=== PATIENT | male | born 1960 | race African-American/Black ===

== ENCOUNTER 2017-06-12 19:17 | Emergency (ER) | payer MEDICAID ==
[~2017-06-12] VITALS: Ht 177.8 cm; Wt 100.0 kg
[2017-06-12] MEDS ORDERED: HALOPERIDOL LACTATE 5MG/ML VIAL IM STA (19:27)
[2017-06-12] MEDS ORDERED: SODIUM CHLORIDE 0.9% 1,000 ML IV ONE (19:27)
[2017-06-12] MEDS ORDERED: LORAZEPAM 2MG/ML CPJ IM STA (19:27)
[2017-06-12 20:34] LABS: BASOPHILS % 0.6 % (0.0-2.0); EOSINOPHILS % 2.2 % (0.0-5.0); HEMATOCRIT. 29.5 % (42.0-52.0); HEMOGLOBIN. 10.3 g/dL (14.0-18.0); LYMPHOCYTES % 12.9 % (20.0-50.0); MEAN CORPUSCULAR HEMOGLOBIN 32.5 pg (28.0-32.0); MEAN CORPUSCULAR VOLUME 92.8 fL (80.0-94.0); MEAN PLATELET VOLUME 6.2 fl (7.4-10.4); MONOCYTES % 9.9 % (2.0-8.0); NEUTROPHILS % 74.4 % (40.0-76.0); PLATELET 373 x1000/uL (130-400); RED BLOOD CELL COUNT 3.17 mill/uL (4.7-6.1); RED CELL DISTRIBUTION WIDTH 12.9 % (11.6-14.6)
[2017-06-12 20:39] LABS: CHLORIDE 104 mEq/L (98-107); INR 1.1; PROTHROMBIN TIME 11.7 sec (9.4-11.6)
[2017-06-12 20:43] LABS: ETHANOL BLOOD 242 mg/dL
[2017-06-12 20:46] LABS: AMMONIA 25 uMol/L (<32)
[2017-06-12 20:48] LABS: CREATINE KINASE 524 IU/L (39-308)
[2017-06-12 21:35] LABS: COLOR URINE YELLOW (YELLOW); KETONES URINE NEGATIVE (NEGATIVE); LEUKOCYTE ESTERASE URINE NEGATIVE (NEGATIVE); NITRITE URINE NEGATIVE (NEGATIVE); OCCULT BLOOD URINE NEGATIVE (NEGATIVE); PROTEIN URINE NEGATIVE (NEGATIVE); SPECIFIC GRAVITY URINE 1.007 (1.005-1.030)
[2017-06-12 22:02] LABS: *AMPHETAMINES SCREEN URINE NEGATIVE (NEGATIVE); *BARBITURATES SCREEN URINE NEGATIVE (NEGATIVE)
[2017-06-12 22:03] LABS: *BENZODIAZEPINES SCREEN URINE NEGATIVE (NEGATIVE); *COCAINE SCREEN URINE PRESUMTIVE POSITIVE (NEGATIVE); CANNABINOID URINE SCREEN NEGATIVE (NEGATIVE); METHADONE URINE SCREEN NEGATIVE (NEGATIVE); OPIATES URINE SCREEN NEGATIVE (NEGATIVE); PHENCYCLIDINE URINE SCREEN NEGATIVE (NEGATIVE)
[2017-06-13] MEDS ORDERED: CHLORDIAZEPOXIDE 25MG CAPSULE PO ONE (01:15)
[2017-06-13] MEDS ORDERED: POTASSIUM CHLORIDE 20MEQ TABLET SR PO ONE (01:15)
[2017-06-13] MEDS ORDERED: LORAZEPAM 2MG/ML CPJ IV ONE (09:15)
[2017-06-13] MEDS ORDERED: SODIUM CHLORIDE 0.9% 1,000 ML IV ONE (10:16)
[2017-06-13 15:55] VITALS: BP 137/71
== END 2017-06-13 17:20 | disposition left against medical advice (07) ==
LOC: ER 19:40 → CANBEDREQ 06-13 17:26
DX: F10.129 Alcohol abuse with intoxication, unspecified (principal); E43 Unspecified severe protein-calorie malnutrition; F20.9 Schizophrenia, unspecified; Y90.8 Blood alcohol level of 240 mg/100 ml or more; F14.10 Cocaine abuse, uncomplicated; E87.6 Hypokalemia; Z68.31 Body mass index [BMI] 31.0-31.9, adult; Z59.0 Homelessness
CPT/HCPCS: 36415; 70450; 80053; 80305; 80307; 80329; 81003; 82140; 82550; 85025; 85610; 93005; 96361; 96372; 96374; 99285; G0482; J1630; J2060; J7030; Z7610